=== PATIENT | male | born 1985 | race Caucasian/White ===

== ENCOUNTER 2021-12-03 14:14 | Emergency (ER) | payer SELFPAY ==
[~2021-12-03] VITALS: Ht 177.8 cm; Wt 60.8 kg
--- NOTE | 2021-12-03 14:35 | NUR ---
pt not found in lobby
--- NOTE | 2021-12-03 14:43 | NUR ---
PATIENT LEFT WITHOUT BEING SEEN BY DR. sanchez. NO FURTHER CARE PROVIDED FOR PATIENT.
--- NOTE | 2021-12-03 15:30 | NUR ---
pt seen back in lobby with a bag of bread
[2021-12-03 15:40] VITALS: BP 107/62
--- NOTE | 2021-12-03 15:55 | NUR ---
AMBULATED TO ER BED 6
[2021-12-03 16:09] LABS: BASOPHILS % (AUTO) 0.4 % (0.0-2.0); EOSINOPHILS # (AUTO) 0.3 K/uL (0-0.4); HEMATOCRIT 39.8 % (36-52); HEMOGLOBIN 13.7 g/dL (12.0-18.0); LYMPHOCYTES # (AUTO) 1.8 K/uL (2.0-11.5); LYMPHOCYTES % (AUTO) 25.1 % (20.5-51.1); MEAN CORPUSCULAR HEMOGLOBIN 31 pg (27-31); MEAN CORPUSCULAR HGB CONC 34 g/dL (33-37); MEAN CORPUSCULAR VOLUME 88.9 fL (80-94); MONOCYTES % (AUTO) 13.6 % (1.7-9.3); NEUTROPHILS % (AUTO) 56.9 % (42.2-75.2); PLATELET COUNT (AUTO) 228 K/uL (140-450); RED BLOOD CELL COUNT(AUTO) 4.48 MIL/uL (4.20-6.10); RED CELL DISTRIBUTION WIDTH 13.7 % (11.6-13.7); WHITE BLOOD COUNT (AUTO) 7.1 K/uL (4.8-10.8)
--- NOTE | 2021-12-03 16:11 | NUR ---
pt swabbed for covid(estephania and novel). walked and handed to lab
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
--- NOTE | 2021-12-03 16:18 | NUR ---
pt encouraged to give urine sample. urinal provided and left at bedside
[2021-12-03 16:31] LABS: ANION GAP 11.6 (8-16); ASPARTATE AMINOTRANSFERASE 20 U/L (15-37); CARBON DIOXIDE 28.3 mmol/L (21-32); CHLORIDE 105 mmol/L (98-107); GLUCOSE 124 mg/dL (74-106); POTASSIUM 3.9 mmol/L (3.5-5.1); SODIUM SERUM 141 mmol/L (136-145); TOTAL BILIRUBIN 0.2 mg/dL (0.0-1.0); UREA NITROGEN, BLOOD 16 mg/dL (7-18)
[2021-12-03 16:32] LABS: SALICYLATE < 2.8 mg/dL (2.8-20.0)
[2021-12-03 16:33] LABS: ACETAMINOPHEN < 0.5 ug/ml (10-30)
[2021-12-03 17:07] LABS: CREATININE 0.9 mg/dL (0.6-1.3); GFR ARICAN-AMERICAN 124 mL/min (>90)
--- NOTE | 2021-12-03 18:10 | NUR ---
PD AT BEDSIDE FOR 5150 EVALUATION
--- NOTE | 2021-12-03 18:15 | NUR ---
PER PD, PT DOES NOT MEET 5150 CRITERIA
--- NOTE | 2021-12-03 19:21 | NUR ---
REPORT GIVEN TO TRESA PAYNE. ALL QUESTIONS ANSWERED. TRANSFER OF CARE AT THIS TIME
--- NOTE | 2021-12-03 19:40 | NUR ---
Pt resting in bed, NAD. Pt agreed to provide urine. Pt declined VS. Pt not making statesments of SI/HI, pt stated, "I want food.".
[2021-12-03 19:51] LABS: BARBITURATE, URINE NEGATIVE ng/ml (NEG <=200); BENZODIAZEPINE, URINE NEGATIVE ng/mL (NEG <=200); CANNABINOID, URINE NEGATIVE ng/mL (NEG <=50); COCAINE, URINE NEGATIVE ng/mL (NEG <=300); OPIATE, URINE NEGATIVE ng/mL (NEG <=2000); PHENCYCLIDINE SCREEN,URINE NEGATIVE ng/mL (NEG <=25)
--- NOTE | 2021-12-04 00:46 | NUR ---
Pt cleared for discharge by . Pt AOx4 able to make needs known. Pt denies SI/HI. Pt provided with change of clothes and food. Pt ambulated to exit with a steady gait.
--- NOTE | 2021-12-04 00:52 | NUR ---
Patient walked out . Dr. Anderson notified.
--- NOTE | 2021-12-04 00:52 | NUR ---
PATIENT ELOPED FROM FACILITY. DISCHARGE INSTRUCTIONS NOT GIVEN TO PATIENT. DR. Anderson NOTIFIED.
== END 2021-12-04 00:52 | disposition left against medical advice (07) ==
LOC: MED 14:14
DX: F20.9 Schizophrenia, unspecified (principal); Z20.822 Contact with and (suspected) exposure to COVID-19; R45.851 Suicidal ideations; F32.A Depression, unspecified; Z88.8 Allergy status to other drugs, medicaments and biological substances
CPT/HCPCS: 36415; 80053; 80305; 85025; 87426; 87635; 99283; C9803; G0480; G0482

== ENCOUNTER 2021-12-04 16:06 | Emergency (ER) | payer SELFPAY ==
[~2021-12-04] VITALS: Ht 177.8 cm; Wt 63.0 kg
[2021-12-04 16:37] VITALS: BP 123/70
[2021-12-04] MEDS ORDERED: OLANZapine 5 MG ODT PO ONE (17:00)
[2021-12-04] MEDS ORDERED: OLANZapine 5 MG ODT ONE (17:23)
[2021-12-04 17:58] LABS: BARBITURATE, URINE NEGATIVE ng/ml (NEG <=200)
[2021-12-04 17:59] LABS: BENZODIAZEPINE, URINE NEGATIVE ng/mL (NEG <=200); CANNABINOID, URINE NEGATIVE ng/mL (NEG <=50); COCAINE, URINE NEGATIVE ng/mL (NEG <=300); OPIATE, URINE NEGATIVE ng/mL (NEG <=2000); PHENCYCLIDINE SCREEN,URINE NEGATIVE ng/mL (NEG <=25)
== END 2021-12-04 18:49 | disposition left against medical advice (07) ==
LOC: MED 16:06
DX: R45.851 Suicidal ideations (principal); Z20.822 Contact with and (suspected) exposure to COVID-19; F31.9 Bipolar disorder, unspecified; F20.9 Schizophrenia, unspecified; F15.10 Other stimulant abuse, uncomplicated
CPT/HCPCS: 80305; 87635-QW; 99285; C9803-CS